=== PATIENT | female | born 1950 | race Caucasian/White ===

== ENCOUNTER 2020-07-17 11:33 | Inpatient (IN) ==
[2020-07-18] MEDS: ARIPiprazole 5 MG TABLET PO SCH (08:44)
[2020-07-18] MEDS: Multivit/Ca/Min/Fe/FA 1 TAB TABLET PO SCH (08:44)
[2020-07-18] MEDS: Aspirin Enteric Coated 325 MG Tablet PO SCH (08:44)
[2020-07-18] MEDS: lamoTRIgine 100 MG TABLET PO SCH (08:49)
[2020-07-18] MEDS ORDERED: lamoTRIgine 25 MG TABLET PO SCH (09:00)
[2020-07-18] MEDS: *HR* HYDROcodone/Acet 5/325 mg TABLET PO PRN ×2 (09:27→20:49)
[2020-07-19] MEDS: ARIPiprazole 5 MG TABLET PO SCH (08:51)
[2020-07-19] MEDS: Aspirin Enteric Coated 325 MG Tablet PO SCH (08:51)
[2020-07-19] MEDS: Multivit/Ca/Min/Fe/FA 1 TAB TABLET PO SCH (08:51)
[2020-07-19] MEDS: lamoTRIgine 100 MG TABLET PO SCH (08:52)
[2020-07-20 05:47] LABS: Basophils % 0.2 %; Eosinophils # 0.1 K/mcL (0.0-0.6); Eosinophils % 1.5 %; Hematocrit 29.9 % (35.3-44.9); Hemoglobin 9.8 g/dL (11.5-15.4); Immature Granulocytes % 0.2 % (0-4); Lymphocytes # 1.2 K/mcL (0.6-4.6); Lymphocytes % 26.3 %; Mean Corpuscular HGB Conc 32.8 g/dL (31.6-35.5); Mean Corpuscular Hemoglobin 31.6 pg (28.0-33.3); Mean Corpuscular Volume 96.5 fL (83.0-100.0); Mean Platelet Volume 9.2 fL (9.4-12.4); Monocytes # 0.5 K/mcL (0.0-1.3); Monocytes % 11.9 %; Neutrophils # 2.7 K/mcL (1.6-8.9); Platelet Count 280 K/mcL (140-400); Red Cell Distribution Width 13.4 % (11.5-14.5); Segmented Neutrophils % 59.9 %; White Blood Count 4.5 K/mcL (4.3-11.1)
[2020-07-20 06:03] LABS: BUN/Creatinine Ratio 31 (6-26); Blood Urea Nitrogen 16 mg/dL (8-23); Calcium 8.3 mg/dL (8.6-10.3); Carbon Dioxide 31 mEq/L (23-29); Chloride 100 mEq/L (98-107); Glucose 98 mg/dL (70-105); Osmolality,Calculated 283 (280-300); Sodium 136 mEq/L (136-145); eGFR For African Americans > 60 (> 60); eGFR For Non-African Americans > 60 (> 60)
[2020-07-20] MEDS: ARIPiprazole 5 MG TABLET PO SCH (08:18)
[2020-07-20] MEDS: lamoTRIgine 100 MG TABLET PO SCH (08:18)
[2020-07-20] MEDS: Aspirin Enteric Coated 325 MG Tablet PO SCH (08:18)
[2020-07-20] MEDS: Multivit/Ca/Min/Fe/FA 1 TAB TABLET PO SCH (08:18)
[2020-07-21] MEDS: Aspirin Enteric Coated 325 MG Tablet PO SCH (08:12)
[2020-07-21] MEDS: lamoTRIgine 100 MG TABLET PO SCH (08:12)
[2020-07-21] MEDS: Multivit/Ca/Min/Fe/FA 1 TAB TABLET PO SCH (08:12)
[2020-07-21] MEDS: ARIPiprazole 5 MG TABLET PO SCH (08:12)
[2020-07-21] MEDS: Acetaminophen 325 MG TABLET PO PRN (19:23)
[2020-07-22] MEDS: Acetaminophen 325 MG TABLET PO PRN ×2 (05:27→20:47)
[2020-07-22] MEDS: Multivit/Ca/Min/Fe/FA 1 TAB TABLET PO SCH (08:07)
[2020-07-22] MEDS: ARIPiprazole 5 MG TABLET PO SCH (08:07)
[2020-07-22] MEDS: lamoTRIgine 100 MG TABLET PO SCH (08:07)
[2020-07-22] MEDS: Aspirin Enteric Coated 325 MG Tablet PO SCH (08:07)
[2020-07-23] MEDS: lamoTRIgine 100 MG TABLET PO SCH (08:08)
[2020-07-23] MEDS: Multivit/Ca/Min/Fe/FA 1 TAB TABLET PO SCH (08:09)
[2020-07-23] MEDS: Aspirin Enteric Coated 325 MG Tablet PO SCH (08:09)
[2020-07-23] MEDS: ARIPiprazole 5 MG TABLET PO SCH (08:09)
[2020-07-23] MEDS: Acetaminophen 325 MG TABLET PO PRN (13:56)
[2020-07-24] MEDS: Aspirin Enteric Coated 325 MG Tablet PO SCH (08:09)
[2020-07-24] MEDS: ARIPiprazole 5 MG TABLET PO SCH (08:09)
[2020-07-24] MEDS: lamoTRIgine 100 MG TABLET PO SCH (08:09)
[2020-07-24] MEDS: Multivit/Ca/Min/Fe/FA 1 TAB TABLET PO SCH (08:09)
[2020-07-25 07:31] LABS: Basophils % 0.5 %; Eosinophils # 0.1 K/mcL (0.0-0.6); Eosinophils % 1.2 %; Hematocrit 32.7 % (35.3-44.9); Hemoglobin 10.5 g/dL (11.5-15.4); Immature Granulocytes % 0.2 % (0-4); Lymphocytes % 22.6 %; Mean Corpuscular HGB Conc 32.1 g/dL (31.6-35.5); Mean Corpuscular Hemoglobin 31.3 pg (28.0-33.3); Mean Corpuscular Volume 97.6 fL (83.0-100.0); Mean Platelet Volume 9.2 fL (9.4-12.4); Monocytes # 0.4 K/mcL (0.0-1.3); Monocytes % 9.2 %; Neutrophils # 2.9 K/mcL (1.6-8.9); Platelet Count 402 K/mcL (140-400); Red Blood Count 3.35 M/mcL (3.82-4.97); Red Cell Distribution Width 13.8 % (11.5-14.5); Segmented Neutrophils % 66.3 %; White Blood Count 4.3 K/mcL (4.3-11.1)
[2020-07-25] MEDS: ARIPiprazole 5 MG TABLET PO SCH (08:18)
[2020-07-25] MEDS: Aspirin Enteric Coated 325 MG Tablet PO SCH (08:18)
[2020-07-25] MEDS: lamoTRIgine 100 MG TABLET PO SCH (08:18)
[2020-07-25] MEDS: Multivit/Ca/Min/Fe/FA 1 TAB TABLET PO SCH (08:18)
[2020-07-26] MEDS: Aspirin Enteric Coated 325 MG Tablet PO SCH (08:18)
[2020-07-26] MEDS: Multivit/Ca/Min/Fe/FA 1 TAB TABLET PO SCH (08:18)
[2020-07-26] MEDS: ARIPiprazole 5 MG TABLET PO SCH (08:18)
[2020-07-26] MEDS: lamoTRIgine 100 MG TABLET PO SCH (08:18)
[2020-07-27] MEDS: ARIPiprazole 5 MG TABLET PO SCH (08:06)
[2020-07-27] MEDS: lamoTRIgine 100 MG TABLET PO SCH (08:06)
[2020-07-27] MEDS: Multivit/Ca/Min/Fe/FA 1 TAB TABLET PO SCH (08:06)
[2020-07-27] MEDS: Aspirin Enteric Coated 325 MG Tablet PO SCH (08:07)
[2020-07-28] MEDS: ARIPiprazole 5 MG TABLET PO SCH (08:35)
[2020-07-28] MEDS: Multivit/Ca/Min/Fe/FA 1 TAB TABLET PO SCH (08:36)
[2020-07-28] MEDS: Aspirin Enteric Coated 325 MG Tablet PO SCH (08:36)
[2020-07-28] MEDS: lamoTRIgine 100 MG TABLET PO SCH (08:36)
[2020-07-28] MEDS: Acetaminophen 325 MG TABLET PO PRN (17:38)
[2020-07-29] MEDS: Aspirin Enteric Coated 325 MG Tablet PO SCH (08:48)
[2020-07-29] MEDS: ARIPiprazole 5 MG TABLET PO SCH (08:48)
[2020-07-29] MEDS: lamoTRIgine 100 MG TABLET PO SCH (08:48)
[2020-07-29] MEDS: Multivit/Ca/Min/Fe/FA 1 TAB TABLET PO SCH (08:49)
[2020-07-29] MEDS: Acetaminophen 325 MG TABLET PO PRN (13:03)
[2020-07-30] MEDS: Aspirin Enteric Coated 325 MG Tablet PO SCH (08:30)
[2020-07-30] MEDS: lamoTRIgine 100 MG TABLET PO SCH (08:30)
[2020-07-30] MEDS: ARIPiprazole 5 MG TABLET PO SCH (08:31)
[2020-07-30] MEDS: Multivit/Ca/Min/Fe/FA 1 TAB TABLET PO SCH (08:31)
[2020-07-30] MEDS: Acetaminophen 325 MG TABLET PO PRN (23:22)
[2020-07-31] MEDS: ARIPiprazole 5 MG TABLET PO SCH (08:08)
[2020-07-31] MEDS: Aspirin Enteric Coated 325 MG Tablet PO SCH (08:08)
[2020-07-31] MEDS: lamoTRIgine 100 MG TABLET PO SCH (08:08)
[2020-07-31] MEDS: Multivit/Ca/Min/Fe/FA 1 TAB TABLET PO SCH (08:08)
[2020-07-31] MEDS: *HR* HYDROcodone/Acet 5/325 mg TABLET PO PRN (14:02)
[2020-08-01] MEDS: Multivit/Ca/Min/Fe/FA 1 TAB TABLET PO SCH (07:54)
[2020-08-01] MEDS: ARIPiprazole 5 MG TABLET PO SCH (07:54)
[2020-08-01] MEDS: lamoTRIgine 100 MG TABLET PO SCH (07:54)
[2020-08-01] MEDS: Aspirin Enteric Coated 325 MG Tablet PO SCH (07:54)
[2020-08-01 08:33] LABS: Basophils % 0.4 %; Eosinophils # 0.1 K/mcL (0.0-0.6); Eosinophils % 1.1 %; Hematocrit 35.2 % (35.3-44.9); Hemoglobin 11.2 g/dL (11.5-15.4); Immature Granulocytes % 0.2 % (0-4); Lymphocytes # 1.5 K/mcL (0.6-4.6); Lymphocytes % 32.9 %; Mean Corpuscular HGB Conc 31.8 g/dL (31.6-35.5); Mean Corpuscular Hemoglobin 31.5 pg (28.0-33.3); Mean Corpuscular Volume 99.2 fL (83.0-100.0); Mean Platelet Volume 9.4 fL (9.4-12.4); Monocytes # 0.4 K/mcL (0.0-1.3); Monocytes % 8.5 %; Neutrophils # 2.6 K/mcL (1.6-8.9); Platelet Count 330 K/mcL (140-400); Red Blood Count 3.55 M/mcL (3.82-4.97); Red Cell Distribution Width 13.8 % (11.5-14.5); Segmented Neutrophils % 56.9 %; White Blood Count 4.6 K/mcL (4.3-11.1)
[2020-08-01 08:52] LABS: BUN/Creatinine Ratio 39 (6-26); Blood Urea Nitrogen 24 mg/dL (8-23); Calcium 9.1 mg/dL (8.6-10.3); Carbon Dioxide 34 mEq/L (23-29); Chloride 101 mEq/L (98-107); Glucose 86 mg/dL (70-105); Osmolality,Calculated 289 (280-300); Potassium 4.2 mEq/L (3.5-5.1); Sodium 138 mEq/L (136-145); eGFR For African Americans > 60 (> 60); eGFR For Non-African Americans > 60 (> 60)
[2020-08-01] MEDS: *HR* HYDROcodone/Acet 5/325 mg TABLET PO PRN (10:14)
[2020-08-02] MEDS: ARIPiprazole 5 MG TABLET PO SCH (08:48)
[2020-08-02] MEDS: Aspirin Enteric Coated 325 MG Tablet PO SCH (08:48)
[2020-08-02] MEDS: Multivit/Ca/Min/Fe/FA 1 TAB TABLET PO SCH (08:48)
[2020-08-02] MEDS: lamoTRIgine 100 MG TABLET PO SCH (08:48)
[2020-08-03 07:47] VITALS: BP 146/82
[2020-08-03] MEDS: ARIPiprazole 5 MG TABLET PO SCH (07:57)
[2020-08-03] MEDS: Multivit/Ca/Min/Fe/FA 1 TAB TABLET PO SCH (07:57)
[2020-08-03] MEDS: lamoTRIgine 100 MG TABLET PO SCH (07:57)
[2020-08-03] MEDS: Aspirin Enteric Coated 325 MG Tablet PO SCH (07:57)
[2020-08-03] MEDS: *HR* HYDROcodone/Acet 5/325 mg TABLET PO PRN (08:05)
== END 2020-08-03 16:25 | disposition home health service (06) | DRG 560 ==
LOC: INPPIK 16:00
PROVIDERS: ADMIT Family Medicine; ATTEND Family Medicine

== ENCOUNTER 2021-05-25 16:59 | Inpatient (IN) ==
[2021-05-25] MEDS ORDERED: *HR* OxyCODONE Immed Rel 5 MG TABLET PO PRN (17:11)
[2021-05-26] MEDS: Aspirin Enteric Coated 81 MG Tablet PO SCH ×3 (00:29→21:26)
[2021-05-26] MEDS: PrednisoLONE Acetate 1% Opth 5 ML BOTTLE RIGHT EYE SCH ×2 (00:29→08:16)
[2021-05-26] MEDS: cephALEXin 500 MG CAPSULE PO SCH ×4 (00:29→21:26)
[2021-05-26] MEDS: Multivit/Ca/Min/Fe/FA 1 TAB TABLET PO SCH (08:14)
[2021-05-26] MEDS: ARIPiprazole 10 MG TABLET PO SCH (08:14)
[2021-05-26] MEDS: Celecoxib 100 MG CAPSULE PO SCH (08:14)
[2021-05-26] MEDS: Cholecalciferol (D-3) 1,000 UNIT (25MCG) TABLET PO SCH (08:15)
[2021-05-26] MEDS: lamoTRIgine 25 MG TABLET PO SCH (08:15)
[2021-05-26] MEDS ORDERED: Ketorolac OPTH Soln 5 ML BOTTLE RIGHT EYE SCH (09:00)
[2021-05-26] MEDS: *HR* Rivaroxaban 10 MG TABLET PO SCH (16:49)
[2021-05-26] MEDS: PrednisoLONE Acetate 1% Opth 5 ML BOTTLE LEFT EYE SCH (16:56)
[2021-05-26] MEDS: Ketorolac OPTH Soln 5 ML BOTTLE LEFT EYE SCH (16:56)
[2021-05-27] MEDS ORDERED: ALENDRONATE SODIUM 70 MG PO SCH (06:30)
[2021-05-27] MEDS: Celecoxib 100 MG CAPSULE PO SCH (08:20)
[2021-05-27] MEDS: lamoTRIgine 25 MG TABLET PO SCH (08:21)
[2021-05-27] MEDS: Cholecalciferol (D-3) 1,000 UNIT (25MCG) TABLET PO SCH (08:21)
[2021-05-27] MEDS: ARIPiprazole 10 MG TABLET PO SCH (08:21)
[2021-05-27] MEDS: Multivit/Ca/Min/Fe/FA 1 TAB TABLET PO SCH (08:21)
[2021-05-27] MEDS: cephALEXin 500 MG CAPSULE PO SCH ×3 (08:21→20:40)
[2021-05-27] MEDS: Aspirin Enteric Coated 81 MG Tablet PO SCH ×2 (08:21→20:40)
[2021-05-27] MEDS: PrednisoLONE Acetate 1% Opth 5 ML BOTTLE LEFT EYE SCH (08:22)
[2021-05-27] MEDS: Ketorolac OPTH Soln 5 ML BOTTLE LEFT EYE SCH (08:23)
[2021-05-27] MEDS: *HR* Rivaroxaban 10 MG TABLET PO SCH (16:38)
[2021-05-28 07:36] LABS: Basophils % 0.2 %; Eosinophils # 0.1 K/mcL (0.0-0.6); Eosinophils % 1.5 %; Hematocrit 24.5 % (35.3-44.9); Immature Granulocytes % 0.2 % (0-4); Lymphocytes # 1.1 K/mcL (0.6-4.6); Lymphocytes % 23.7 %; Mean Corpuscular HGB Conc 32.7 g/dL (31.6-35.5); Mean Corpuscular Hemoglobin 31.9 pg (28.0-33.3); Mean Corpuscular Volume 97.6 fL (83.0-100.0); Mean Platelet Volume 10.1 fL (9.4-12.4); Monocytes # 0.4 K/mcL (0.0-1.3); Monocytes % 9.5 %; Platelet Count 194 K/mcL (140-400); Red Blood Count 2.51 M/mcL (3.82-4.97); Red Cell Distribution Width 13.1 % (11.5-14.5); Segmented Neutrophils % 64.9 %; White Blood Count 4.6 K/mcL (4.3-11.1)
[2021-05-28 07:45] LABS: BUN/Creatinine Ratio 33 (6-26); Blood Urea Nitrogen 17 mg/dL (8-23); Calcium 8.1 mg/dL (8.6-10.3); Carbon Dioxide 32 mEq/L (23-29); Chloride 101 mEq/L (98-107); Glucose 106 mg/dL (70-105); Osmolality,Calculated 288 (280-300); Potassium 4.1 mEq/L (3.5-5.1); Sodium 138 mEq/L (136-145); eGFR For African Americans > 60 (> 60); eGFR For Non-African Americans > 60 (> 60)
[2021-05-28] MEDS: ARIPiprazole 10 MG TABLET PO SCH (10:04)
[2021-05-28] MEDS: Ketorolac OPTH Soln 5 ML BOTTLE LEFT EYE SCH ×2 (10:04→20:04)
[2021-05-28] MEDS: lamoTRIgine 25 MG TABLET PO SCH (10:04)
[2021-05-28] MEDS: cephALEXin 500 MG CAPSULE PO SCH ×3 (10:04→20:04)
[2021-05-28] MEDS: Celecoxib 100 MG CAPSULE PO SCH (10:04)
[2021-05-28] MEDS: Aspirin Enteric Coated 81 MG Tablet PO SCH ×2 (10:04→20:04)
[2021-05-28] MEDS: Cholecalciferol (D-3) 1,000 UNIT (25MCG) TABLET PO SCH (10:04)
[2021-05-28] MEDS: PrednisoLONE Acetate 1% Opth 5 ML BOTTLE LEFT EYE SCH ×2 (10:04→20:03)
[2021-05-28] MEDS: Multivit/Ca/Min/Fe/FA 1 TAB TABLET PO SCH (10:04)
[2021-05-28] MEDS: *HR* Rivaroxaban 10 MG TABLET PO SCH (15:32)
[2021-05-29] MEDS: ARIPiprazole 10 MG TABLET PO SCH (09:34)
[2021-05-29] MEDS: cephALEXin 500 MG CAPSULE PO SCH ×3 (09:34→19:47)
[2021-05-29] MEDS: Celecoxib 100 MG CAPSULE PO SCH (09:35)
[2021-05-29] MEDS: Aspirin Enteric Coated 81 MG Tablet PO SCH ×2 (09:35→19:47)
[2021-05-29] MEDS: Multivit/Ca/Min/Fe/FA 1 TAB TABLET PO SCH (09:35)
[2021-05-29] MEDS: lamoTRIgine 25 MG TABLET PO SCH (09:36)
[2021-05-29] MEDS: Cholecalciferol (D-3) 1,000 UNIT (25MCG) TABLET PO SCH (09:36)
[2021-05-29] MEDS: Ketorolac OPTH Soln 5 ML BOTTLE LEFT EYE SCH ×2 (09:41→20:35)
[2021-05-29] MEDS: PrednisoLONE Acetate 1% Opth 5 ML BOTTLE LEFT EYE SCH ×2 (09:42→20:35)
[2021-05-29] MEDS: *HR* Rivaroxaban 10 MG TABLET PO SCH (19:26)
[2021-05-30] MEDS: cephALEXin 500 MG CAPSULE PO SCH ×3 (09:03→20:28)
[2021-05-30] MEDS: Multivit/Ca/Min/Fe/FA 1 TAB TABLET PO SCH (09:03)
[2021-05-30] MEDS: Celecoxib 100 MG CAPSULE PO SCH (09:03)
[2021-05-30] MEDS: ARIPiprazole 10 MG TABLET PO SCH (09:03)
[2021-05-30] MEDS: Aspirin Enteric Coated 81 MG Tablet PO SCH ×2 (09:04→20:29)
[2021-05-30] MEDS: Cholecalciferol (D-3) 1,000 UNIT (25MCG) TABLET PO SCH (09:04)
[2021-05-30] MEDS: lamoTRIgine 25 MG TABLET PO SCH (09:04)
[2021-05-30] MEDS: PrednisoLONE Acetate 1% Opth 5 ML BOTTLE LEFT EYE SCH ×2 (09:04→20:30)
[2021-05-30] MEDS: Ketorolac OPTH Soln 5 ML BOTTLE LEFT EYE SCH ×2 (09:05→20:52)
[2021-05-30] MEDS: *HR* Rivaroxaban 10 MG TABLET PO SCH (17:00)
[2021-05-31] MEDS: Aspirin Enteric Coated 81 MG Tablet PO SCH ×2 (09:25→20:59)
[2021-05-31] MEDS: ARIPiprazole 10 MG TABLET PO SCH (09:27)
[2021-05-31] MEDS: Cholecalciferol (D-3) 1,000 UNIT (25MCG) TABLET PO SCH (09:27)
[2021-05-31] MEDS: cephALEXin 500 MG CAPSULE PO SCH ×3 (09:27→20:59)
[2021-05-31] MEDS: lamoTRIgine 25 MG TABLET PO SCH (09:27)
[2021-05-31] MEDS: Multivit/Ca/Min/Fe/FA 1 TAB TABLET PO SCH (09:27)
[2021-05-31] MEDS: PrednisoLONE Acetate 1% Opth 5 ML BOTTLE LEFT EYE SCH ×2 (09:28→21:01)
[2021-05-31] MEDS: Celecoxib 100 MG CAPSULE PO SCH (09:28)
[2021-05-31] MEDS: Ketorolac OPTH Soln 5 ML BOTTLE LEFT EYE SCH ×2 (09:31→21:01)
[2021-05-31] MEDS: *HR* Rivaroxaban 10 MG TABLET PO SCH (17:01)
[2021-06-01] MEDS: PrednisoLONE Acetate 1% Opth 5 ML BOTTLE LEFT EYE SCH ×2 (08:21→19:39)
[2021-06-01] MEDS: Multivit/Ca/Min/Fe/FA 1 TAB TABLET PO SCH (08:22)
[2021-06-01] MEDS: Ketorolac OPTH Soln 5 ML BOTTLE LEFT EYE SCH ×2 (08:22→19:39)
[2021-06-01] MEDS: ARIPiprazole 10 MG TABLET PO SCH (08:22)
[2021-06-01] MEDS: Celecoxib 100 MG CAPSULE PO SCH (08:22)
[2021-06-01] MEDS: cephALEXin 500 MG CAPSULE PO SCH ×3 (08:22→19:39)
[2021-06-01] MEDS: Aspirin Enteric Coated 81 MG Tablet PO SCH ×2 (08:22→19:39)
[2021-06-01] MEDS: lamoTRIgine 25 MG TABLET PO SCH (08:23)
[2021-06-01] MEDS: Cholecalciferol (D-3) 1,000 UNIT (25MCG) TABLET PO SCH (08:24)
[2021-06-01] MEDS: *HR* Rivaroxaban 10 MG TABLET PO SCH (18:00)
[2021-06-02 07:21] LABS: Hematocrit 25.1 % (35.3-44.9); Mean Corpuscular HGB Conc 31.9 g/dL (31.6-35.5); Mean Corpuscular Hemoglobin 31.6 pg (28.0-33.3); Mean Corpuscular Volume 99.2 fL (83.0-100.0); Mean Platelet Volume 9.2 fL (9.4-12.4); Platelet Count 403 K/mcL (140-400); Red Blood Count 2.53 M/mcL (3.82-4.97); Red Cell Distribution Width 13.6 % (11.5-14.5); White Blood Count 4.8 K/mcL (4.3-11.1)
[2021-06-02 07:40] LABS: BUN/Creatinine Ratio 30 (6-26); Blood Urea Nitrogen 19 mg/dL (8-23); Calcium 8.5 mg/dL (8.6-10.3); Carbon Dioxide 31 mEq/L (23-29); Chloride 101 mEq/L (98-107); Glucose 96 mg/dL (70-105); Osmolality,Calculated 288 (280-300); Potassium 4.2 mEq/L (3.5-5.1); Sodium 138 mEq/L (136-145); eGFR For African Americans > 60 (> 60); eGFR For Non-African Americans > 60 (> 60)
[2021-06-02] MEDS: Aspirin Enteric Coated 81 MG Tablet PO SCH ×2 (09:35→20:04)
[2021-06-02] MEDS: lamoTRIgine 25 MG TABLET PO SCH (09:35)
[2021-06-02] MEDS: ARIPiprazole 10 MG TABLET PO SCH (09:35)
[2021-06-02] MEDS: Cholecalciferol (D-3) 1,000 UNIT (25MCG) TABLET PO SCH (09:35)
[2021-06-02] MEDS: cephALEXin 500 MG CAPSULE PO SCH ×3 (09:35→20:04)
[2021-06-02] MEDS: Celecoxib 100 MG CAPSULE PO SCH (09:35)
[2021-06-02] MEDS: Multivit/Ca/Min/Fe/FA 1 TAB TABLET PO SCH (09:35)
[2021-06-02] MEDS: PrednisoLONE Acetate 1% Opth 5 ML BOTTLE LEFT EYE SCH ×2 (09:36→20:04)
[2021-06-02] MEDS: Ketorolac OPTH Soln 5 ML BOTTLE LEFT EYE SCH ×2 (09:37→20:05)
[2021-06-02] MEDS: *HR* Rivaroxaban 10 MG TABLET PO SCH (17:08)
[2021-06-03] MEDS: PrednisoLONE Acetate 1% Opth 5 ML BOTTLE LEFT EYE SCH ×2 (10:06→21:38)
[2021-06-03] MEDS: lamoTRIgine 25 MG TABLET PO SCH (10:07)
[2021-06-03] MEDS: Ketorolac OPTH Soln 5 ML BOTTLE LEFT EYE SCH ×2 (10:07→21:37)
[2021-06-03] MEDS: ARIPiprazole 10 MG TABLET PO SCH (10:07)
[2021-06-03] MEDS: Cholecalciferol (D-3) 1,000 UNIT (25MCG) TABLET PO SCH (10:07)
[2021-06-03] MEDS: Multivit/Ca/Min/Fe/FA 1 TAB TABLET PO SCH (10:07)
[2021-06-03] MEDS: Aspirin Enteric Coated 81 MG Tablet PO SCH ×2 (10:08→21:24)
[2021-06-03] MEDS: cephALEXin 500 MG CAPSULE PO SCH ×3 (10:08→21:24)
[2021-06-03] MEDS: Celecoxib 100 MG CAPSULE PO SCH (10:08)
[2021-06-03] MEDS: *HR* Rivaroxaban 10 MG TABLET PO SCH (17:37)
[2021-06-04] MEDS: Multivit/Ca/Min/Fe/FA 1 TAB TABLET PO SCH (09:42)
[2021-06-04] MEDS: Aspirin Enteric Coated 81 MG Tablet PO SCH ×2 (09:42→20:28)
[2021-06-04] MEDS: ARIPiprazole 10 MG TABLET PO SCH (09:42)
[2021-06-04] MEDS: PrednisoLONE Acetate 1% Opth 5 ML BOTTLE LEFT EYE SCH ×2 (09:43→21:25)
[2021-06-04] MEDS: Ketorolac OPTH Soln 5 ML BOTTLE LEFT EYE SCH ×2 (09:43→21:25)
[2021-06-04] MEDS: Celecoxib 100 MG CAPSULE PO SCH (09:43)
[2021-06-04] MEDS: cephALEXin 500 MG CAPSULE PO SCH ×3 (09:43→20:28)
[2021-06-04] MEDS: Cholecalciferol (D-3) 1,000 UNIT (25MCG) TABLET PO SCH (09:43)
[2021-06-04] MEDS: lamoTRIgine 25 MG TABLET PO SCH (09:43)
[2021-06-04] MEDS: *HR* Rivaroxaban 10 MG TABLET PO SCH (15:29)
[2021-06-05] MEDS: lamoTRIgine 25 MG TABLET PO SCH (10:10)
[2021-06-05] MEDS: ARIPiprazole 10 MG TABLET PO SCH (10:10)
[2021-06-05] MEDS: Aspirin Enteric Coated 81 MG Tablet PO SCH ×2 (10:10→20:07)
[2021-06-05] MEDS: cephALEXin 500 MG CAPSULE PO SCH ×3 (10:10→20:13)
[2021-06-05] MEDS: Celecoxib 100 MG CAPSULE PO SCH (10:10)
[2021-06-05] MEDS: Multivit/Ca/Min/Fe/FA 1 TAB TABLET PO SCH (10:11)
[2021-06-05] MEDS: Cholecalciferol (D-3) 1,000 UNIT (25MCG) TABLET PO SCH (10:11)
[2021-06-05] MEDS: PrednisoLONE Acetate 1% Opth 5 ML BOTTLE LEFT EYE SCH ×2 (10:15→20:13)
[2021-06-05] MEDS: Ketorolac OPTH Soln 5 ML BOTTLE LEFT EYE SCH ×2 (10:16→20:12)
[2021-06-05] MEDS: *HR* Rivaroxaban 10 MG TABLET PO SCH (17:10)
[2021-06-06 08:07] LABS: Basophils % 0.4 %; Eosinophils # 0.1 K/mcL (0.0-0.6); Eosinophils % 1.9 %; Hematocrit 32.8 % (35.3-44.9); Hemoglobin 10.2 g/dL (11.5-15.4); Immature Granulocytes % 0.2 % (0-4); Lymphocytes # 1.7 K/mcL (0.6-4.6); Lymphocytes % 29.4 %; Mean Corpuscular HGB Conc 31.1 g/dL (31.6-35.5); Mean Corpuscular Hemoglobin 31.5 pg (28.0-33.3); Mean Corpuscular Volume 101.2 fL (83.0-100.0); Monocytes # 0.4 K/mcL (0.0-1.3); Monocytes % 7.5 %; Neutrophils # 3.5 K/mcL (1.6-8.9); Platelet Count 611 K/mcL (140-400); Red Blood Count 3.24 M/mcL (3.82-4.97); Red Cell Distribution Width 14.3 % (11.5-14.5); Segmented Neutrophils % 60.6 %; White Blood Count 5.7 K/mcL (4.3-11.1)
[2021-06-06 08:20] LABS: BUN/Creatinine Ratio 35 (6-26); Blood Urea Nitrogen 25 mg/dL (8-23); Calcium 9.3 mg/dL (8.6-10.3); Carbon Dioxide 33 mEq/L (23-29); Chloride 99 mEq/L (98-107); Glucose 94 mg/dL (70-105); Osmolality,Calculated 290 (280-300); Potassium 4.1 mEq/L (3.5-5.1); Sodium 138 mEq/L (136-145); eGFR For African Americans > 60 (> 60); eGFR For Non-African Americans > 60 (> 60)
[2021-06-06] MEDS: Aspirin Enteric Coated 81 MG Tablet PO SCH ×2 (08:59→19:33)
[2021-06-06] MEDS: ARIPiprazole 10 MG TABLET PO SCH (08:59)
[2021-06-06] MEDS: Cholecalciferol (D-3) 1,000 UNIT (25MCG) TABLET PO SCH (09:00)
[2021-06-06] MEDS: Multivit/Ca/Min/Fe/FA 1 TAB TABLET PO SCH (09:00)
[2021-06-06] MEDS: cephALEXin 500 MG CAPSULE PO SCH ×3 (09:00→19:34)
[2021-06-06] MEDS: Celecoxib 100 MG CAPSULE PO SCH (09:00)
[2021-06-06] MEDS: lamoTRIgine 25 MG TABLET PO SCH (09:00)
[2021-06-06] MEDS: Ketorolac OPTH Soln 5 ML BOTTLE LEFT EYE SCH ×2 (09:01→19:34)
[2021-06-06] MEDS: PrednisoLONE Acetate 1% Opth 5 ML BOTTLE LEFT EYE SCH ×2 (09:01→19:34)
[2021-06-06] MEDS: *HR* Rivaroxaban 10 MG TABLET PO SCH (16:07)
[2021-06-07] MEDS: cephALEXin 500 MG CAPSULE PO SCH ×3 (07:48→19:46)
[2021-06-07] MEDS: lamoTRIgine 25 MG TABLET PO SCH (07:48)
[2021-06-07] MEDS: ARIPiprazole 10 MG TABLET PO SCH (07:49)
[2021-06-07] MEDS: Aspirin Enteric Coated 81 MG Tablet PO SCH ×2 (07:49→19:46)
[2021-06-07] MEDS: Multivit/Ca/Min/Fe/FA 1 TAB TABLET PO SCH (07:50)
[2021-06-07] MEDS: Ketorolac OPTH Soln 5 ML BOTTLE LEFT EYE SCH ×2 (07:50→19:46)
[2021-06-07] MEDS: PrednisoLONE Acetate 1% Opth 5 ML BOTTLE LEFT EYE SCH ×2 (07:50→19:46)
[2021-06-07] MEDS: Cholecalciferol (D-3) 1,000 UNIT (25MCG) TABLET PO SCH (07:50)
[2021-06-07] MEDS: Celecoxib 100 MG CAPSULE PO SCH (07:50)
[2021-06-07] MEDS: *HR* Rivaroxaban 10 MG TABLET PO SCH (16:06)
[2021-06-08] MEDS: Aspirin Enteric Coated 81 MG Tablet PO SCH ×2 (07:55→20:46)
[2021-06-08] MEDS: cephALEXin 500 MG CAPSULE PO SCH ×2 (07:55→15:00)
[2021-06-08] MEDS: ARIPiprazole 10 MG TABLET PO SCH (07:55)
[2021-06-08] MEDS: Cholecalciferol (D-3) 1,000 UNIT (25MCG) TABLET PO SCH (07:55)
[2021-06-08] MEDS: Multivit/Ca/Min/Fe/FA 1 TAB TABLET PO SCH (07:56)
[2021-06-08] MEDS: lamoTRIgine 25 MG TABLET PO SCH (07:56)
[2021-06-08] MEDS: PrednisoLONE Acetate 1% Opth 5 ML BOTTLE LEFT EYE SCH ×2 (07:56→20:39)
[2021-06-08] MEDS: Celecoxib 100 MG CAPSULE PO SCH (07:56)
[2021-06-08] MEDS: Ketorolac OPTH Soln 5 ML BOTTLE LEFT EYE SCH ×2 (07:57→20:39)
[2021-06-08] MEDS: *HR* Rivaroxaban 10 MG TABLET PO SCH (17:13)
[2021-06-09] MEDS: lamoTRIgine 25 MG TABLET PO SCH (08:43)
[2021-06-09] MEDS: Celecoxib 100 MG CAPSULE PO SCH (08:43)
[2021-06-09] MEDS: Aspirin Enteric Coated 81 MG Tablet PO SCH ×2 (08:43→20:18)
[2021-06-09] MEDS: Multivit/Ca/Min/Fe/FA 1 TAB TABLET PO SCH (08:44)
[2021-06-09] MEDS: Cholecalciferol (D-3) 1,000 UNIT (25MCG) TABLET PO SCH (08:44)
[2021-06-09] MEDS: ARIPiprazole 10 MG TABLET PO SCH (08:44)
[2021-06-09] MEDS: Ketorolac OPTH Soln 5 ML BOTTLE LEFT EYE SCH (08:48)
[2021-06-09] MEDS: PrednisoLONE Acetate 1% Opth 5 ML BOTTLE LEFT EYE SCH (08:48)
[2021-06-09] MEDS: *HR* Rivaroxaban 10 MG TABLET PO SCH (17:02)
[2021-06-10] MEDS: lamoTRIgine 25 MG TABLET PO SCH (08:34)
[2021-06-10] MEDS: Multivit/Ca/Min/Fe/FA 1 TAB TABLET PO SCH (08:34)
[2021-06-10] MEDS: Aspirin Enteric Coated 81 MG Tablet PO SCH ×2 (08:34→19:43)
[2021-06-10] MEDS: Celecoxib 100 MG CAPSULE PO SCH (08:34)
[2021-06-10] MEDS: ARIPiprazole 10 MG TABLET PO SCH (08:34)
[2021-06-10] MEDS: Cholecalciferol (D-3) 1,000 UNIT (25MCG) TABLET PO SCH (08:34)
[2021-06-10] MEDS: *HR* Rivaroxaban 10 MG TABLET PO SCH (17:05)
[2021-06-10] MEDS ORDERED: DiphenhydraMINE CREAM 28.4 GM TUBE TP PRN (17:54)
[2021-06-10] MEDS: Eucerin Cream 57 GM TUBE TP SCH ×2 (18:05→19:50)
[2021-06-10] MEDS: DiphenhydraMINE CREAM 28.4 GM TUBE TP SCH (19:49)
[2021-06-11] MEDS: lamoTRIgine 25 MG TABLET PO SCH (08:51)
[2021-06-11] MEDS: Multivit/Ca/Min/Fe/FA 1 TAB TABLET PO SCH (08:51)
[2021-06-11] MEDS: Aspirin Enteric Coated 81 MG Tablet PO SCH ×2 (08:51→20:12)
[2021-06-11] MEDS: Cholecalciferol (D-3) 1,000 UNIT (25MCG) TABLET PO SCH (08:51)
[2021-06-11] MEDS: ARIPiprazole 10 MG TABLET PO SCH (08:52)
[2021-06-11] MEDS: Celecoxib 100 MG CAPSULE PO SCH (08:52)
[2021-06-11] MEDS: Eucerin Cream 57 GM TUBE TP SCH ×3 (08:55→20:13)
[2021-06-11] MEDS: DiphenhydraMINE CREAM 28.4 GM TUBE TP SCH ×2 (10:29→20:13)
[2021-06-11] MEDS: *HR* Rivaroxaban 10 MG TABLET PO SCH (16:26)
[2021-06-12] MEDS: lamoTRIgine 25 MG TABLET PO SCH (07:54)
[2021-06-12] MEDS: Multivit/Ca/Min/Fe/FA 1 TAB TABLET PO SCH (07:54)
[2021-06-12] MEDS: Aspirin Enteric Coated 81 MG Tablet PO SCH (07:54)
[2021-06-12] MEDS: ARIPiprazole 10 MG TABLET PO SCH (07:54)
[2021-06-12] MEDS: Cholecalciferol (D-3) 1,000 UNIT (25MCG) TABLET PO SCH (07:54)
[2021-06-12] MEDS: Celecoxib 100 MG CAPSULE PO SCH (07:54)
[2021-06-12] MEDS: DiphenhydraMINE CREAM 28.4 GM TUBE TP SCH (07:54)
[2021-06-12] MEDS: Eucerin Cream 57 GM TUBE TP SCH (07:57)
[2021-06-12 08:07] VITALS: BP 122/69; PULSE 81; RESP 20; TEMP 97.5; O2SAT 99
== END 2021-06-12 13:38 | disposition home health service (06) | DRG 554 ==
LOC: INPPIK 23:48
PROVIDERS: ADMIT Family Medicine; ATTEND Family Medicine